=== PATIENT | female | born 1965 | race Caucasian/White ===

== ENCOUNTER → 2016-07-21 | Outpatient (CLI) | payer MEDICAID ==
[~2016-07-21] MED LIST: CALC500T11 PO; CHOL100062 PO; ZOC10 PO
--- NOTE | 2016-07-21 14:17 | RADRPT ---
PROCEDURE: XR Chest. CLINICAL INDICATION: Cough. TECHNIQUE: Two views. Frontal and lateral. COMPARISON: 02/10/2016. FINDINGS: There is a left internal jugular vein implanted port central venous catheter with the tip in the cav oatrial junction region. The lungs are clear. The heart size is normal. There is no pleural effusion. There is no pneumothorax. IMPRESSION: 1. Left IJ catheter in satisfactory position. 2. Clear lungs. RPTAT: QQ .Victoriano Sagastume MD, MD Date Time Electronically viewed and signed by .Victoriano Sagastume MD, MD on 07/21/2016 14:16 .R/
== END | disposition home or self-care (01) ==
LOC: RAD 13:37
PROVIDERS: ATTEND Internal Medicine Hematology & Oncology
DX: R05 Cough (principal)
CPT/HCPCS: 71020

== ENCOUNTER 2016-10-10 03:15 | Emergency (ER) | payer MEDICAID ==
[~2016-10-10] VITALS: Ht 157.5 cm; Wt 64.5 kg
[2016-10-10 03:21] VITALS: Ht 157.5 cm; Wt 64.5 kg
--- NOTE | 2016-10-10 03:41 | ERA ---
ER Documentation Chief Complaint Date/Time DATE: 10/10/16 TIME: 03:40 Chief Complaint dizziness,SUAREZ,nausea,denies CP/SOB HPI The patient is a 50-year-old female, presenting to the ER because of dizziness, headache, nausea for 1 day. The symptoms worse with head movement. She denies similar symptoms previously, denies fever, chills, neck pain, chest pain, dyspnea, abdominal pain, vomiting, dysuria, diarrhea. She does not smoke or drink Past medical history: Hypertension, dyslipidemia, history of right breast cancer treated with chemotherapy for 6 months and finished about 3 weeks ago Past surgical history: Hysterectomy, ROS All systems reviewed and are negative except as per history of present illness. Medications Home Meds Active Scripts Carbamide Peroxide* (Debrox*) 6.5% - 15 Ml Drops, 10 DROP BOTH EARS BID for 7 Days, BOTTLE Prov:SKY MARINO MD 10/10/16 Meclizine Hcl* (Antivert*) 12.5 Mg Tab, 25 MG PO Q6H Y for DIZZINESS, #20 TAB Prov:SKY MARINO MD 10/10/16 Reported Medications Acetaminophen* (Tylenol*) 500 Mg Tab, 500 MG PO Q4H Y for MILD PAIN LEVEL 1-3, TAB 10/10/16 Calcium Carbonate (Oysco-500) 500 Mg Tablet, 500 MG PO DAILY, TAB 03/29/16 Discontinued Reported Medications Cholecalciferol* (Vitamin D3*) 1,000 Unit Tablet, 1000 UNIT PO DAILY, TAB 03/29/16 Simvastatin (Simvastatin) 10 Mg Tablet, 10 MG PO DAILY, #30 TAB 02/09/16 Allergies Allergies: Coded Allergies: No Known Allergy (Unverified , 10/10/16) PMhx/Soc History of Surgery: Yes (RT BREAST,HYSTERECTOMY,CSECTION) Anesthesia Reaction: No Hx Neurological Disorder: No Hx Respiratory Disorders: No Hx Cardiac Disorders: Yes (HTN,HYPERLIPIDEMIA) Hx Psychiatric Problems: No Hx Miscellaneous Medical Probl: Yes (RT BREAST CA) Hx Alcohol Use: No Hx Substance Use: No Hx Tobacco Use: No Physical Exam Vitals Vital Signs Date Time Temp Pulse Resp B/P Pulse Ox O2 Delivery O2 Flow Rate FiO2 10/10/16 05:02 73 12 147/100 97 Room Air 10/10/16 03:21 98.2 82 18 142/64 99 Physical Exam Const: No acute distress. Head: Atraumatic. Eyes: Normal Conjunctiva. ENT: Normal External Ears, Nose and Mouth. Bilateral ear canals with moderate amount of cerumens Neck: Full range of motion. No meningismus. Resp: Clear to auscultation bilaterally. Cardio: Regular rate and rhythm, no murmurs. Abd: Soft, non distended, normal bowel sounds, non tender. Skin: No petechiae or rashes. Back: No midline or flank tenderness. Ext: No cyanosis, or edema. Neur: Awake and alert. No focal deficit Psych: Normal Mood and Affect. Result Diagram: 10/10/16 04010/10/16404 Results 24 hrs Laboratory Tests Test 10/10/16 04:05 White Blood Count 4.710^3/ul Red Blood Count 3.6410^6/ul Hemoglobin 10.9g/dl Hematocrit 35.1% Mean Corpuscular Volume 96.4fl Mean Corpuscular Hemoglobin 29.9pg Mean Corpuscular Hemoglobin Concent 31.1g/dl Red Cell Distribution Width 13.7% Platelet Count 48621^3/UL Mean Platelet Volume 10.2fl Neutrophils % 58.0% Lymphocytes % 28.2% Monocytes % 10.0% Eosinophils % 3.4% Basophils % 0.4% Nucleated Red Blood Cells % 0.0/100WBC Neutrophils # 2.710^3/ul Lymphocytes # 1.310^3/ul Monocytes # 0.510^3/ul Eosinophils # 0.210^3/ul Basophils # 0.010^3/ul Nucleated Red Blood Cells # 0.010^3/ul Sodium Level 144mmol/L Potassium Level 4.0mmol/L Chloride Level 111mmol/L Carbon Dioxide Level 27mmol/L Anion Gap 10 Blood Urea Nitrogen 14mg/dl Creatinine 0.60mg/dl Glucose Level 106mg/dl Bedside Glucose 114mg/dL Calcium Level 9.5mg/dl Current Medications Medications (Trade) Dose Ordered Sig/Andres Route PRN Reason Start Time Stop Time Status Last Admin Dose Admin Meclizine HCl (Antivert) 25 mg ONCE ONCE PO 10/10/16 04:00 10/10/16 04:01 DC 10/10/16 04:08 Procedures/[place] [address] Radiology Main Line: [phone] DIAGNOSTIC IMAGING REPORT Patient: LISET LIVE : 1965 Age: 50 Sex: F MR #: [id number] #: [id number] DOS: 10/10/16 0348 Ordering MD: SKY MARINO MD Location: E/R Room/Bed: PROCEDURE: CT BRAIN WITHOUT CONTRAST CLINICAL INDICATION: 50-year-old female with syncope. TECHNIQUE: The study was performed utilizing a [employer] VCT 64-slice CT scanner. Direct axial sections were obtained from the foramen magnum to the vertex without the use of intravenous contrast material. Sagittal and coronal reformations were obtained. One or more the following dose reduction techniques were utilized: automated exposure control, adjustment of the mA and/or kV according to patient's size or use of iterative reconstruction technique. The images were viewed on a PACS workstation. CTD/vol = 45.0 mGy; Total Exam DLP = 720.2 mGy-cm. COMPARISON: None. FINDINGS: The ventricles have a normal size, shape and position. There is no evidence for mass effect or midline shift. There are no intracranial areas of abnormal attenuation. There is no evidence for acute intra or extra-axial blood. The bony calvarium is intact. The visualized paranasal sinuses and mastoid air cells are without significant abnormal soft tissue. IMPRESSION: Unremarkable noncontrast CT scan of the brain. .Vic Gilbert MD, MD Date Time Electronically viewed and signed by .Vic Gilbert MD, on 10/10/2016 04:27 .M/ CC: SKY MARINO MD EKG: Read by emergency physician Rate/Rhythm: Normal Sinus Rhythm 78 beats/min QRS, ST, T-waves: No ST elevation, no T inversion Impression: Normal EKG MEDICAL MAKING DECISION: The patient is a 50-year-old female, presenting with acute dizziness of unclear etiology, acute bilateral ear canal cerumen impaction. She was treated with Antivert for dizziness with good response The differential diagnoses considered include but are not limited to central causes such as cerebellar infarct, cerebellar hemorrhage, cerebellar tumor, acoustic neuroma, peripheral causes such as benign positional vertigo, labyrinthitis, medication, Meniere's disease. Departure Diagnosis: Primary Impression: Dizziness Additional Impressions: Impacted cerumen of both ears Anemia Condition: Good Comments She was discharged with Antivert and Debrox I discussed the findings with the patient. I advised the patient to follow-up with the primary physician in about 1-2 days, sooner if needed and return if any concern. SKY MARINO MD October 10, 2016 03:41
[2016-10-10] MEDS ORDERED: MECLIZINE 12.5 MG TAB PO ONE (04:00)
[2016-10-10 04:22] LABS: ADD SCAN DIFF NO
--- NOTE | 2016-10-10 04:27 | RADRPT ---
PROCEDURE: CT BRAIN WITHOUT CONTRAST CLINICAL INDICATION: 50-year-old female with syncope. TECHNIQUE: The study was performed utilizing a GE 3i Systemspeed VCT 64-slice CT scanner. Direct axia l sections were obtained from the foramen magnum to the vertex without the use of intravenous contra st material. Sagittal and coronal reformations were obtained. One or more the following dose reduct ion techniques were utilized: automated exposure control, adjustment of the mA and/or kV according t o patient's size or use of iterative reconstruction technique. The images were viewed on a PACS [employer]. CTD/vol = 45.0 mGy; Total Exam DLP = 720.2 mGy-cm. COMPARISON: None. FINDINGS: The ventricles have a normal size, shape and position. There is no evidence for mass effect or midl ine shift. There are no intracranial areas of abnormal attenuation. There is no evidence for acute intra or extra-axial blood. The bony calvarium is intact. The visualized paranasal sinuses and mast oid air cells are without significant abnormal soft tissue. IMPRESSION: Unremarkable noncontrast CT scan of the brain. .Vic Gilbert MD, MD Date Time Electronically viewed and signed by .Vic Gilbert MD, on 10/10/2016 04:27 .Jesus/
[2016-10-10 04:31] LABS: BASOPHILS % 0.4 % (0.0-2.0); EOSINOPHILS # 0.2 10^3/ul (0.0-0.5); EOSINOPHILS % 3.4 % (0.0-7.0); HEMATOCRIT 35.1 % (37.0-47.0); HEMOGLOBIN 10.9 g/dl (12.0-16.0); LYMPHOCYTES # 1.3 10^3/ul (0.8-2.9); LYMPHOCYTES % 28.2 % (15.0-51.0); MEAN CORPUSCULAR HEMOGLOBIN 29.9 pg (29.0-33.0); MEAN CORPUSCULAR HGB CONC 31.1 g/dl (32.0-37.0); MEAN CORPUSCULAR VOLUME 96.4 fl (82.0-101.0); MEAN PLATELET VOLUME 10.2 fl (7.4-10.4); MONOCYTE # 0.5 10^3/ul (0.3-0.9); NEUTROPHIL # 2.7 10^3/ul (1.6-7.5); PLATELET COUNT 201 10^3/UL (140-415); RED BLOOD COUNT 3.64 10^6/ul (4.20-5.40); RED CELL DISTRIBUTION WIDTH 13.7 % (11.5-14.5); WHITE BLOOD COUNT 4.7 10^3/ul (4.8-10.8)
[2016-10-10] MEDS ORDERED: TYL500 PO (04:50)
[2016-10-10 04:54] LABS: CREATININE 0.6 mg/dl (0.44-1.00)
[2016-10-10 04:55] LABS: CALCIUM 9.5 mg/dl (8.4-10.2)
[2016-10-10 05:02] VITALS: BP 147/100; PULSE 73; RESP 12
[2016-10-10] MEDS ORDERED: MECL12.574 PO (05:14)
[2016-10-10] MEDS ORDERED: CARB15DR48 BOTH EARS (05:15)
== END 2016-10-10 05:28 | disposition home or self-care (01) ==
LOC: E/R 03:15
DX: R42 Dizziness and giddiness (principal); H61.23 Impacted cerumen, bilateral; D64.9 Anemia, unspecified; R40.2142 Coma scale, eyes open, spontaneous, at arrival to emergency department; R40.2252 Coma scale, best verbal response, oriented, at arrival to emergency department; R40.2362 Coma scale, best motor response, obeys commands, at arrival to emergency department; I10 Essential (primary) hypertension; Z85.3 Personal history of malignant neoplasm of breast
CPT/HCPCS: 36415; 70450; 80048; 82962; 85025; 93005; Z7502; Z7610

== ENCOUNTER 2016-11-16 09:11 | Day surgery (SDC) | payer MEDICAID ==
[~2016-11-16] VITALS: Ht 152.4 cm; Wt 64.0 kg
[2016-11-16] VITALS (11 sets, daily range): BP systolic 124–148; BP diastolic 59–82; PULSE 66–104; RESP 12–18; Ht 152.4 cm; Wt 64.0 kg
[~2016-11-16 09:11] MED LIST changes: +CARB15DR50 BOTH EARS; +CEFAZOLIN 1 GM INJ ONE; -CHOL100062 PO; +GLYCOPYRROLATE 0.4 MG INJ ONE; +MECL12.574 PO; +NEOSTIGMINE 3 MG/3 ML SYRINGE ONE; +ROCURONIUM 50 MG INJ ONE; +SUCCINYLCHOLINE CHLORIDE 100 MG/5 ML SYG IV ONE; +TYL500 PO; -ZOC10 PO
[2016-11-16 12:06] LABS: ADD SCAN DIFF NO
[2016-11-16 12:12] LABS: BASOPHILS % 0.3 % (0.0-2.0); EOSINOPHILS # 0.1 10^3/ul (0.0-0.5); EOSINOPHILS % 0.8 % (0.0-7.0); HEMATOCRIT 38.2 % (37.0-47.0); HEMOGLOBIN 12.7 g/dl (12.0-16.0); LYMPHOCYTES # 1.2 10^3/ul (0.8-2.9); LYMPHOCYTES % 18.5 % (15.0-51.0); MEAN CORPUSCULAR HEMOGLOBIN 30.4 pg (29.0-33.0); MEAN CORPUSCULAR HGB CONC 33.2 g/dl (32.0-37.0); MEAN CORPUSCULAR VOLUME 91.4 fl (82.0-101.0); MEAN PLATELET VOLUME 10.5 fl (7.4-10.4); MONOCYTE # 0.4 10^3/ul (0.3-0.9); MONOCYTES % 5.6 % (0.0-11.0); NEUTROPHILS % 74.6 % (39.0-77.0); PLATELET COUNT 182 10^3/UL (140-415); RED BLOOD COUNT 4.18 10^6/ul (4.20-5.40); RED CELL DISTRIBUTION WIDTH 13.3 % (11.5-14.5); WHITE BLOOD COUNT 6.7 10^3/ul (4.8-10.8)
[2016-11-16 12:26] LABS: INR 0.9; PROTIME 12.1 Sec (12.2-14.2); PT RATIO 0.9
[2016-11-16 12:27] LABS: PARTIAL THROMBOPLASTIN TIME 27.2 Sec (25.0-35.0)
[2016-11-16 12:33] LABS: ALBUMIN 5.2 g/dl (3.3-4.9); ALBUMIN/GLOBULIN RATIO 1.33; BILIRUBIN,INDIRECT 0.5 mg/dl (0-1.1); BILIRUBIN,TOTAL 0.5 mg/dl (0.2-1.3); TOTAL PROTEIN 9.1 g/dl (6.1-8.1)
--- NOTE | 2016-11-16 12:51 | RADRPT ---
PROCEDURE: XR Chest 1 View. CLINICAL INDICATION: Abnormal breath sounds, preop. TECHNIQUE: AP view of the chest was obtained. COMPARISON: July 21, 2016 FINDINGS: The heart size is within normal limits. Calcified atherosclerosis is noted in the aorta. Left chest port has its tip at the expected location of the cavoatrial junction. No consolidations are identif ied. No pneumothorax is seen. Osseous structures are intact. IMPRESSION: Calcified atherosclerosis in the aorta. Clear lungs. RPTAT: AA .Tolu Crabtree MD, Date Time Electronically viewed and signed by .Tolu Crabtree MD, on 11/16/2016 12:50 .P/
[2016-11-16] MEDS ORDERED: ONDANSETRON 4 MG INJ ONE (13:01)
[2016-11-16] MEDS ORDERED: MIDAZOLAM 1 MG/ML 2 ML INJ ONE (13:01)
[2016-11-16] MEDS ORDERED: LIDOCAINE 2% (SDV) 5 ML INJ ONE (13:01)
[2016-11-16] MEDS ORDERED: PROPOFOL 20 ML ONE (13:01)
[2016-11-16 13:02] LABS: CALCIUM 10.7 mg/dl (8.4-10.2); CREATININE 0.61 mg/dl (0.44-1.00); POTASSIUM 4.3 mmol/L (3.5-5.1)
[2016-11-16] MEDS ORDERED: DEXAMETHASONE 4 MG/ML 1 ML INJ ONE (13:02)
[2016-11-16] MEDS ORDERED: FAMOTIDINE 20 MG INJ ONE (13:02)
[2016-11-16] MEDS ORDERED: HYDROCODONE/APAP (5/325) TAB PO ONE (14:30)
[2016-11-16] MEDS ORDERED: METOCLOPRAMIDE 10 MG INJ IV PRN (15:00)
[2016-11-16] MEDS ORDERED: ONDANSETRON 4 MG INJ IV PRN (15:00)
[2016-11-16] MEDS ORDERED: FENTAnyl 50 MCG/ML VIAL IV PRN ×2 (15:00)
[2016-11-16] MEDS ORDERED: MEPERIDINE 25 MG INJ IV PRN (15:00)
[2016-11-16] MEDS ORDERED: HYDROmorphONE (0.2 MG/ML) 10ML SYG IV PRN ×3 (15:00)
[2016-11-16] MEDS ORDERED: DIPHENHYDRAMINE 50 MG INJ IV PRN (15:00)
--- NOTE | 2016-11-17 16:54 | RADRPT ---
Vent Rate: 77 bpm RR Interval: 0 msec OH Interval: 126 msec QRS Duration: 84 msec QT Interval: 414 msec QTC Interval: 468 msec P-R-T Morris: 45 - 56 - 59 degrees Normal sinus rhythm Normal ECG Electronically Signed By: Bartolo Pickens [id number]
--- NOTE | 2016-12-02 11:20 | OPR ---
DATE OF OPERATION: 11/16/2016 SURGEON: Rah Suarez MD. AUTO APPRENTICE MECHANIC: None. ANESTHESIOLOGIST: [____] PREOPERATIVE DIAGNOSIS: Recurrent cancer right breast. PREOPERATIVE DIAGNOSIS: Recurrent cancer right breast. OPERATION PERFORMED: Right needle-directed partial mastectomy. ANESTHESIA: General. INDICATIONS FOR PROCEDURE: The patient is a 51-year-old female who is known to me. I previously treated her for an invasive cancer of her breast. She presented with a possible recurrent nodule near the axilla. Ultrasound guided biopsy confirmed recurrent cancer, possibly within an inframmary lymph node. The patient was as to the need for surgical excision, and she consented and was scheduled for right needle directed partial mastectomy. DESCRIPTION OF PROCEDURE: On the day of surgery, the patient presented to [facility] where she underwent localization of the tumor, performed by attending radiologist, Dr. Carlitos Smith. Subsequently, she was brought to the operating theatre and placed under general anesthesia. The right breast was prepped and draped in the usual sterile fashion. A curvilinear incision was made in the upper outer quadrant of the right breast in the region of the previously placed localization wire. The subcutaneous tissue as dissected with cautery. The skin edges were then elevated with skin hooks and wide circumferential dissection of the tissue associated with the wire, taking great care to ensure adequate margins. The specimen was elevated, transected, oriented and sent for radiographic confirmation of capture of the clip. Capture was confirmed. The specimen was then sent for permanent pathologic analysis. The wound was irrigated, minimal bleeding was controlled with cautery. The skin was then reapproximated with #4-0 Vicryl suture in subcuticular fashion. The patient tolerated the procedure well. The patient was then transported in stable condition to the Recovery room where a circumferential compression dressing was applied. ESTIMATED BLOOD LOSS: Approximately 20 mL. COMPLICATIONS: There were no complications. Dictated By: Rah Suarez MD /andrzej/jeannine /Document#: [id number]
== END 2016-11-16 16:50 | disposition home or self-care (01) ==
LOC: SDS 09:11
PROVIDERS: ATTEND Surgery Surgical Oncology
DX: C50.411 Malignant neoplasm of upper-outer quadrant of right female breast (principal); E78.5 Hyperlipidemia, unspecified; I10 Essential (primary) hypertension
CPT/HCPCS: 19301; 71010; 80053; 85025; 85610; 85730; 88307; 93005; J0690; J2175; J2250; J2405; J2710; J3010; J7999; Z7512; Z7610; J1100

== ENCOUNTER 2017-01-03 18:53 | Inpatient (IN) | payer MEDICAID ==
[~2017-01-03] VITALS: Ht 160 cm; Wt 61.5 kg
[2017-01-03] MEDS ORDERED: SOD CHLORIDE 0.9% 500 ML IV STA (23:22)
[2017-01-03] MEDS ORDERED: MECLIZINE 12.5 MG TAB PO ONE (23:30)
--- NOTE | 2017-01-03 23:55 | ERD ---
ER Documentation Chief Complaint Date/Time DATE: 01/03/17 TIME: 23:54 Chief Complaint n/v, dizziness, headache hx of breast ca HPI Very pleasant 51-year-old Pakistani-speaking female. An seismic interpreter was used. The patient describes onset of nonbloody nonbilious emesis and room spinning vertigo sensation that started earlier today. The symptoms are reproducible. She has had similar symptoms in the past approximately 3-4 months ago with a negative CT brain. She denies any fevers or chills chest pain or shortness of breath. Patient states that she had received chemotherapy and they are about to initiate radiation therapy. She does not believe that the cancer is metastatic though she thinks they did find an extra lymph node. ROS All systems reviewed and are negative except as per history of present illness. Medications Home Meds Reported Medications Cholecalciferol* (Vitamin D*) 400 Unit Tablet, 800 UNIT PO DAILY, TAB 01/04/17 Simvastatin* (Zocor*) 10 Mg Tablet, 10 MG PO QHS, #30 TAB 01/04/17 Allergies Allergies: Coded Allergies: No Known Allergy (Unverified , 01/04/17) PMhx/Soc History of Surgery: Yes (PARTIAL HYSTERECTOMY) Anesthesia Reaction: No Hx Neurological Disorder: No Hx Respiratory Disorders: No Hx Cardiac Disorders: No Hx Psychiatric Problems: No Hx Miscellaneous Medical Probl: No Hx Alcohol Use: No Hx Substance Use: No Hx Tobacco Use: No FmHx Family History: No diabetes Physical Exam Vitals Vital Signs Date Time Temp Pulse Resp B/P Pulse Ox O2 Delivery O2 Flow Rate FiO2 01/03/17 20:07 98.7 71 18 133/96 99 Physical Exam General: Well developed, well nourished, no acute distress Head: Normocephalic, atraumatic. Eyes: Pupils equally reactive, EOM intact ENT: Moist mucous membranes Neck: Supple, no lymphadenopathy Respiratory: Lungs clear bilaterally, no distress Cardiovascular: RRR, no murmurs, rubs, or gallops Abdominal: Soft, non-tender, non-distended, no peritoneal signs : Deferred MSK: No edema, no unilateral swelling, 5/5 strength Neurologic: Alert and oriented, moving all extremities, normal speech, no focal weakness, no cerebellar signs, slight reproducible vertigo with head movements Skin: No rash Psych: Normal mood Result Diagram: 01/03/17 5851 01/03/17 2334 Results 24 hrs Laboratory Tests Test 01/03/17 23:34 White Blood Count 6.310^3/ul Red Blood Count 4.2610^6/ul Hemoglobin 12.8g/dl Hematocrit 38.0% Mean Corpuscular Volume 89.2fl Mean Corpuscular Hemoglobin 30.0pg Mean Corpuscular Hemoglobin Concent 33.7g/dl Red Cell Distribution Width 12.8% Platelet Count 57011^3/UL Mean Platelet Volume 10.9fl Neutrophils % 68.3% Lymphocytes % 24.5% Monocytes % 6.2% Eosinophils % 0.5% Basophils % 0.3% Nucleated Red Blood Cells % 0.0/100WBC Neutrophils # (Manual) 410^3/ul Lymphocytes # 1.510^3/ul Monocytes # 0.410^3/ul Eosinophils # 0.010^3/ul Basophils # 0.010^3/ul Nucleated Red Blood Cells # 0.010^3/ul Sodium Level 144mmol/L Potassium Level 4.5mmol/L Chloride Level 102mmol/L Carbon Dioxide Level 28mmol/L Anion Gap 19 Blood Urea Nitrogen 12mg/dl Creatinine 0.63mg/dl Glucose Level 104mg/dl Calcium Level 10.6mg/dl Current Medications Medications (Trade) Dose Ordered Sig/Andres Route PRN Reason Start Time Stop Time Status Last Admin Dose Admin Sodium Chloride (NS) 500 ml @ 500 mls/hr Q1H STAT IV 01/03/17 23:22 01/04/17 00:21 DC 01/04/17 00:00 Meclizine HCl (Antivert) 25 mg ONCE ONCE PO 01/03/17 23:30 01/03/17 23:31 DC 01/03/17 23:59 Procedures/MDM EKG, MONITORS, & DIAGNOSTIC IMAGING: MRI brain Pending LAB INTERPRETATION: No acute process MEDICAL DECISION MAKING: The patient presents to the emergency room complaining of vertigo. She has slight reproducible symptoms that are suggestive of possible benign positional vertigo. However the patient has breast cancer she is currently undergoing chemotherapy. She notes that there may have been an extra lymph node that had disease. Given the patient's recurrent vertigo I am concerned for possible metastatic spread. While I believe this is less likely I cannot rule this out without MRI imaging. The patient had a CT in September I do not feel the patient has a need for a repeat CT given the risk of radiation. I believe an MRI would be appropriate. ER COURSE: The patient was given meclizine with only mild improvement she was given Ativan. Given her persistence of symptoms and limited follow-up I recommend inpatient observation until MRI can be completed in the morning. I attempted to call for stat MRI but they cannot come in overnight. The patient is resting comfortably she did receive a repeat dose of Ativan. I believe avoiding CT is still appropriate as the patient can have MRI imaging in the morning. I kept the patient and/or family informed of laboratory and diagnostic imaging results throughout the emergency room course. DISPOSITION PLAN: Medical surgical admission to rule out intracranial metastases CONSULTATION: Accepting care team and consultations: I discussed the current laboratory data, diagnostic imaging and emergency care provided. Admitting team: Dr. Morales Admitting team indication: Insurance directed Departure Diagnosis: Primary Impression: Vertigo Additional Impression: History of breast cancer KAROL ADAM MD Jan 03, 2017 23:54
[2017-01-04 00:01] LABS: BASOPHILS % 0.3 % (0.0-2.0); EOSINOPHILS % 0.5 % (0.0-7.0); HEMOGLOBIN 12.8 g/dl (12.0-16.0); LYMPHOCYTES # 1.5 10^3/ul (0.8-2.9); LYMPHOCYTES % 24.5 % (15.0-51.0); MEAN CORPUSCULAR HGB CONC 33.7 g/dl (32.0-37.0); MEAN CORPUSCULAR VOLUME 89.2 fl (82.0-101.0); MEAN PLATELET VOLUME 10.9 fl (7.4-10.4); MONOCYTE # 0.4 10^3/ul (0.3-0.9); MONOCYTES % 6.2 % (0.0-11.0); NEUTROPHILS % 68.3 % (39.0-77.0); PLATELET COUNT 198 10^3/UL (140-415); RED BLOOD COUNT 4.26 10^6/ul (4.20-5.40); RED CELL DISTRIBUTION WIDTH 12.8 % (11.5-14.5); WHITE BLOOD COUNT 6.3 10^3/ul (4.8-10.8)
[2017-01-04 00:21] LABS: CREATININE 0.63 mg/dl (0.44-1.00); POTASSIUM 4.5 mmol/L (3.5-5.1)
[2017-01-04] MEDS ORDERED: SIMV10TA PO (00:30)
[2017-01-04] MEDS ORDERED: CHOL400T10 PO (00:30)
[2017-01-04 01:40] LABS: CALCIUM 10.6 mg/dl (8.4-10.2)
[2017-01-04] MEDS ORDERED: ONDANSETRON 4 MG INJ IV PRN ×2 (02:30→04:30)
[2017-01-04] MEDS ORDERED: LORAZEPAM 2 MG INJ IV ONE (02:30)
[2017-01-04] MEDS ORDERED: ACETAMINOPHEN 325 MG TAB PO PRN (02:30)
--- NOTE | 2017-01-04 04:13 | HP ---
Date/Time of Note Date/Time of Note DATE: 01/04/17 TIME: 04:10 Assessment/Plan VTE Prophylaxis VTE Prophylaxis Intervention: ambulation, SCD's Assessment/Plan Assessment/Plan 51-year-old female with history of recurrent right breast cancer who presents with dizziness and nausea and vomiting 1. Vertigo with nausea and vomiting rule out brain metastasis 2. Recurrent right-sided breast cancer 3. Dyslipidemia Plan: Patient will be admitted to get MRI done and to further workup her dizziness. This will include lab testing, urinalysis, and even ACS rule out. We will give IV fluids and also get physical therapy evaluation. Further interventions will depend on her clinical course. We will provide supportive care. Prophylaxis SCDs/ambulation HPI/ROS Admit Date/Time Admit Date/Time January 04, 2017 Hx of Present Illness This is a 51-year-old female with a history of recurrent right-sided breast cancer for which she is status post partial mastectomy 2 the last of which was November 2016. She presents to emergency room today with a one-day history of vomiting and severe vertigo. Vertigo is so severe that patient is unable to perform her ADLs. There is no fever, there is no blood in vomit or blood in her stool. As well as the patient knows she does not have brain metastasis. Has no cough, no chest pain, no shortness of breath. Patient has not had similar symptoms in the past. ROS 12 point review if systems was done and pertinent findings are as noted. PMH/Family/Social Past Medical History * Recurrent right-sided breast cancer with positive lymphadenopathy but no distant metastasis * Dyslipidemia Past Surgical History * Right partial mastectomy 2 Social History Alcohol Use: none Smoking Status: Unknown if ever smoked Exam/Review of Systems Vital Signs Vitals VS - Last 72 Hours, by Label Date Time Temp Pulse Resp B/P Pulse Ox O2 Delivery O2 Flow Rate FiO2 01/03/17 20:07 98.7 71 18 133/96 99 Vital Signs Date Time Temp Pulse Resp B/P Pulse Ox O2 Delivery O2 Flow Rate FiO2 01/03/17 20:07 98.7 71 18 133/96 99 Exam Exam Constitutional: alert, oriented Head: atraumatic, normocephalic Neck: non-tender, supple Respiratory: clear to auscultation Cardiovascular: regular rate and rhythm Gastrointestinal: S/ NT / ND / +BS Extremities: no edema, good radial pulses Labs Result Diagram: 01/03/17 2334 01/03/17 2334 Medications Medications Current Medications Cholecalciferol (Vitamin D) 800 units DAILY PO ; Start 01/04/17 at 09:00; Status UNV Miscellaneous Information 10 mg QHS PO ; Start 01/04/17 at 21:00; Status UNV Ondansetron HCl (Zofran Inj) 4 mg Q6H PRN IV NAUSEA AND/OR VOMITING; Start at 04:30; Status UNV Acetaminophen/ Hydrocodone Bitart ([place] (5/325)) 1 tab Q6H PRN PO pain; Start 01/04/17 at 04:30; Status UNV Procedures Procedures Laboratory Tests Test 01/03/17 23:34 White Blood Count 6.310^3/ul Red Blood Count 4.2610^6/ul Hemoglobin 12.8g/dl Hematocrit 38.0% Mean Corpuscular Volume 89.2fl Mean Corpuscular Hemoglobin 30.0pg Mean Corpuscular Hemoglobin Concent 33.7g/dl Red Cell Distribution Width 12.8% Platelet Count 70060^3/UL Mean Platelet Volume 10.9fl Neutrophils % 68.3% Lymphocytes % 24.5% Monocytes % 6.2% Eosinophils % 0.5% Basophils % 0.3% Nucleated Red Blood Cells % 0.0/100WBC Neutrophils # (Manual) 410^3/ul Lymphocytes # 1.510^3/ul Monocytes # 0.410^3/ul Eosinophils # 0.010^3/ul Basophils # 0.010^3/ul Nucleated Red Blood Cells # 0.010^3/ul Sodium Level 144mmol/L Potassium Level 4.5mmol/L Chloride Level 102mmol/L Carbon Dioxide Level 28mmol/L Anion Gap 19 Blood Urea Nitrogen 12mg/dl Creatinine 0.63mg/dl Glucose Level 104mg/dl Calcium Level 10.6mg/dl Current Medications Medications (Trade) Dose Ordered Sig/Andres Route PRN Reason Start Time Stop Time Status Last Admin Dose Admin Sodium Chloride (NS) 500 ml @ 500 mls/hr Q1H STAT IV 01/03/17 23:22 01/04/17 00:21 DC 01/04/17 00:00 500 MLS/HR Meclizine HCl (Antivert) 25 mg ONCE ONCE PO 01/03/17 23:30 01/03/17 23:31 DC 01/03/17 23:59 25 MG Lorazepam (Ativan) 0.5 mg ONCE ONCE IV 01/04/17 02:30 01/04/17 02:31 DC Ondansetron HCl (Zofran Inj) 4 mg BRIDGE ORDER PRN IV NAUSEA AND/OR VOMITING 01/04/17 02:30 01/05/17 02:29 Acetaminophen (Tylenol Tab) 650 mg ER BRIDGE PRN PO MILD PAIN/FEVER 01/04/17 02:30 01/05/17 02:29 Cholecalciferol (Vitamin D) 800 units DAILY PO 01/04/17 09:00 UNV Miscellaneous Information 10 mg QHS PO 01/04/17 21:00 UNV Ondansetron HCl (Zofran Inj) 4 mg Q6H PRN IV NAUSEA AND/OR VOMITING 01/04/17 04:30 UNV Acetaminophen/ Hydrocodone Bitart ([place] (5/325)) 1 tab Q6H PRN PO pain 01/04/17 04:30 UNV MILO GUZMAN Jan 04, 2017 04:13
[2017-01-04] MEDS ORDERED: HYDROCODONE/APAP (5/325) TAB PO PRN (04:30)
[2017-01-04] MEDS ORDERED: SOD CHLORIDE 0.9% 1,000 ML IV SCH (04:30)
[2017-01-04 04:42] VITALS: BP 130/70; PULSE 79; RESP 18; Ht 160 cm; Wt 61.5 kg
[2017-01-04 07:39] LABS: BASOPHILS % 0.2 % (0.0-2.0); EOSINOPHILS # 0.1 10^3/ul (0.0-0.5); EOSINOPHILS % 1.3 % (0.0-7.0); HEMATOCRIT 36.7 % (37.0-47.0); HEMOGLOBIN 12.1 g/dl (12.0-16.0); LYMPHOCYTES # 1.7 10^3/ul (0.8-2.9); LYMPHOCYTES % 34.9 % (15.0-51.0); MEAN CORPUSCULAR HEMOGLOBIN 29.7 pg (29.0-33.0); MEAN CORPUSCULAR VOLUME 90.2 fl (82.0-101.0); MEAN PLATELET VOLUME 10.9 fl (7.4-10.4); MONOCYTE # 0.5 10^3/ul (0.3-0.9); MONOCYTES % 9.9 % (0.0-11.0); NEUTROPHILS % 53.5 % (39.0-77.0); PLATELET COUNT 186 10^3/UL (140-415); RED BLOOD COUNT 4.07 10^6/ul (4.20-5.40); RED CELL DISTRIBUTION WIDTH 12.8 % (11.5-14.5); WHITE BLOOD COUNT 4.7 10^3/ul (4.8-10.8)
[2017-01-04 08:28] LABS: ALBUMIN 4.5 g/dl (3.3-4.9); BILIRUBIN,INDIRECT 0.4 mg/dl (0-1.1); BILIRUBIN,TOTAL 0.4 mg/dl (0.2-1.3); CHOL/HDL RATIO 4.2 RATIO; CREATININE 0.61 mg/dl (0.44-1.00); MAGNESIUM 2.1 mg/dl (1.7-2.5); POTASSIUM 3.9 mmol/L (3.5-5.1); TOTAL PROTEIN 8.2 g/dl (6.1-8.1)
[2017-01-04 08:37] LABS: CK-MB 1.27 ng/ml (0.0-2.4); TROPONIN-I 0.017 ng/ml (0.00-0.12)
[2017-01-04] MEDS ORDERED: CHOLECALCIFEROL 400 UNITS TAB PO SCH (09:00)
[2017-01-04] MEDS ORDERED: DOCUSATE SODIUM 100 MG CAP PO SCH (09:00)
[2017-01-04] MEDS ORDERED: FAMOTIDINE 20 MG TAB PO SCH (09:00)
[2017-01-04 12:37] LABS: CREATINE KINASE 118 IU/L (23-200)
[2017-01-04 13:07] LABS: TROPONIN-I < 0.012 ng/ml (0.00-0.12)
[2017-01-04 14:11] LABS: THYROID STIMULATING HORMONE 2.37 MIU/L (0.465-4.680)
--- NOTE | 2017-01-04 17:15 | RADRPT ---
PROCEDURE: MRI Brain without contrast. CLINICAL INDICATION: Vertigo, history breast cancer TECHNIQUE: Multiplanar MRI of the brain without contrast was performed on a 3.0 T scanner with the following sequences obtained: T1-weighted, T2-weighted/FLAIR, diffusion weighted (with ADC map), GR E. COMPARISON: CT brain 10/10/2016 FINDINGS: No acute/recent ischemic infarction or intracranial hemorrhage / blood degradation products are iden tified. No extra-axial fluid collection is seen. There is no mass effect. No midline shift is identified. The ventricles and sulci are within normal limits for size and configuration. The signal intensity is unremarkable throughout the cerebrum, brainstem and cerebellum. Flow voids are identified in the proximal intracranial arteries and dural sinuses suggesting patency . The mastoid air cells and paranasal sinuses are grossly clear. IMPRESSION: 1. No evidence of acute intracranial pathology. 2. Unremarkable noncontrast MRI of the brain. RPTAT: VV .Waldemar Hollins MD, MD Date Time Electronically viewed and signed by .Waldemar Hollins MD, on 01/04/2017 17:15 .O/
--- NOTE | 2017-01-04 17:56 | PDOCDIS ---
Discharge Instructions DIAGNOSIS Discharge Diagnosis dizziness CONDITION Patient Condition: Stable FOLLOW UP/APPOINTMENTS Follow-up Plan Follow up with your regular doctor within 5 days RADHA DING MD Jan 04, 2017 17:56
[2017-01-04 18:00] VITALS: BP 136/72; PULSE 86; RESP 18
--- NOTE | 2017-01-04 18:03 | DS ---
Date/Time of Note Date/Time of Note DATE: 01/04/17 TIME: 18:02 Discharge Summary Admission/Discharge Info Admit Date/Time Jan 04, 2017 at 02:04 Discharge Date/Time Discharge Diagnosis dizziness Patient Condition: Stable Procedures MRI brain 01.04 IMPRESSION: 1. No evidence of acute intracranial pathology. 2. Unremarkable noncontrast MRI of the brain. Hx of Present Illness This is a 51-year-old female with a history of recurrent right-sided breast cancer for which she is status post partial mastectomy 2 the last of which was November 2016. She presents to emergency room today with a one-day history of vomiting and severe vertigo. Vertigo is so severe that patient is unable to perform her ADLs. There is no fever, there is no blood in vomit or blood in her stool. As well as the patient knows she does not have brain metastasis. Has no cough, no chest pain, no shortness of breath. Patient has not had similar symptoms in the past. Hospital Course Pt admitted for dizziness. Labs unremarkable as was neuroimaging. Pt's symptoms resolved shortly after admission. Pt able to ambulate unassisted in the halls. Pt requesting discharge. Pt advised to follow up with PCP within 5 days. Home Meds Reported Medications Cholecalciferol* (Vitamin D*) 400 Unit Tablet, 800 UNIT PO DAILY, TAB 01/04/17 Simvastatin* (Zocor*) 10 Mg Tablet, 10 MG PO QHS, #30 TAB 01/04/17 Primary Care Provider [facility] Pending Labs Laboratory Tests Test 01/03/17 23:34 01/04/17 06:10 01/04/17 12:05 White Blood Count 6.310^3/ul (4.8-10.8) 4.710^3/ul (4.8-10.8) Red Blood Count 4.2610^6/ul (4.20-5.40) 4.0710^6/ul (4.20-5.40) Hemoglobin 12.8g/dl (12.0-16.0) 12.1g/dl (12.0-16.0) Hematocrit 38.0% (37.0-47.0) 36.7% (37.0-47.0) Mean Corpuscular Volume 89.2fl (82.0-101.0) 90.2fl (82.0-101.0) Mean Corpuscular Hemoglobin 30.0pg (29.0-33.0) 29.7pg (29.0-33.0) Mean Corpuscular Hemoglobin Concent 33.7g/dl (32.0-37.0) 33.0g/dl (32.0-37.0) Red Cell Distribution Width 12.8% (11.5-14.5) 12.8% (11.5-14.5) Platelet Count 62691^3/UL (140-415) 87014^3/UL (140-415) Mean Platelet Volume 10.9fl (7.4-10.4) 10.9fl (7.4-10.4) Neutrophils % 68.3% (39.0-77.0) 53.5% (39.0-77.0) Lymphocytes % 24.5% (15.0-51.0) 34.9% (15.0-51.0) Monocytes % 6.2% (0.0-11.0) 9.9% (0.0-11.0) Eosinophils % 0.5% (0.0-7.0) 1.3% (0.0-7.0) Basophils % 0.3% (0.0-2.0) 0.2% (0.0-2.0) Nucleated Red Blood Cells % 0.0/100WBC (0.0-0.0) 0.0/100WBC (0.0-0.0) Neutrophils # (Manual) 410^3/ul (1.7-7.5) 310^3/ul (1.7-7.5) Lymphocytes # 1.510^3/ul (0.8-2.9) 1.710^3/ul (0.8-2.9) Monocytes # 0.410^3/ul (0.3-0.9) 0.510^3/ul (0.3-0.9) Eosinophils # 0.010^3/ul (0.0-0.5) 0.110^3/ul (0.0-0.5) Basophils # 0.010^3/ul (0.0-0.1) 0.010^3/ul (0.0-0.1) Nucleated Red Blood Cells # 0.010^3/ul (0.0-0.0) 0.010^3/ul (0.0-0.0) Sodium Level 144mmol/L (135-144) 142mmol/L (135-144) Potassium Level 4.5mmol/L (3.5-5.1) 3.9mmol/L (3.5-5.1) Chloride Level 102mmol/L (97-110) 104mmol/L (97-110) Carbon Dioxide Level 28mmol/L (21-31) 26mmol/L (21-31) Anion Gap 19 (8-16) 16 (8-16) Blood Urea Nitrogen 12mg/dl (7-20) 11mg/dl (7-20) Creatinine 0.63mg/dl (0.44-1.00) 0.61mg/dl (0.44-1.00) Glucose Level 104mg/dl (70-220) 88mg/dl (70-220) Calcium Level 10.6mg/dl (8.4-10.2) 10.0mg/dl (8.4-10.2) Magnesium Level 2.1mg/dl (1.7-2.5) Total Bilirubin 0.4mg/dl (0.2-1.3) Direct Bilirubin 0.00mg/dl (0.00-0.20) Indirect Bilirubin 0.4mg/dl (0-1.1) Aspartate Amino Transf (AST/SGOT) 39IU/L (15-46) Alanine Aminotransferase (ALT/SGPT) 40IU/L (13-69) Alkaline Phosphatase 101IU/L (42-121) Creatine Kinase 135IU/L (23-200) 118IU/L (23-200) Creatine Kinase Index 0.9 0.5 Creatinine Kinase MB (Mass) 1.27ng/ml (0.0-2.4) 0.60ng/ml (0.0-2.4) Troponin I 0.017ng/ml (0.00-0.12) < 0.012ng/ml (0.00-0.12) Total Protein 8.2g/dl (6.1-8.1) Albumin 4.5g/dl (3.3-4.9) Triglycerides Level 143mg/dl (0-149) Cholesterol Level 171mg/dl (100-200) LDL Cholesterol, Calculated 102mg/dl HDL Cholesterol 40mg/dl (37-92) Cholesterol/HDL Ratio 4.2RATIO Thyroid Stimulating Hormone (TSH) 2.370MIU/L (0.465-4.680) RADHA DING MD Jan 04, 2017 18:03
[2017-01-04] MEDS ORDERED: ATORVASTATIN 10 MG TAB PO SCH (21:00)
== END 2017-01-04 18:30 | disposition home or self-care (01) | DRG 149 ==
LOC: E/R 18:53 → MS3 01-04 02:04
PROVIDERS: ADMIT Family Medicine; ATTEND Family Medicine
DX: R42 Dizziness and giddiness (principal); E78.5 Hyperlipidemia, unspecified; Z85.3 Personal history of malignant neoplasm of breast
CPT/HCPCS: 36415; 70551; 80048; 80061; 80076; 82550; 82553; 83735; 84443; 84484; 85025; 93005; J7030; J7040

== ENCOUNTER 2018-01-11 14:59 | Emergency (ER) | END 2018-01-11 21:30 | disposition home or self-care (01) ==

== ENCOUNTER 2018-09-13 14:32 | Emergency (ER) | payer MEDICAID ==
[~2018-09-13] VITALS: Ht 152.4 cm; Wt 72.0 kg
[~2018-09-13 14:32] MED LIST changes: -CALC500T11 PO; -CARB15DR50 BOTH EARS; -CEFAZOLIN 1 GM INJ ONE; +CHOL400T10 PO; -GLYCOPYRROLATE 0.4 MG INJ ONE; -NEOSTIGMINE 3 MG/3 ML SYRINGE ONE; +ONDA4TAB14 PO; -ROCURONIUM 50 MG INJ ONE; +SIMV10TA PO; -SUCCINYLCHOLINE CHLORIDE 100 MG/5 ML SYG IV ONE; -TYL500 PO
[2018-09-13 14:37] VITALS: BP 125/77; PULSE 65; RESP 16; Ht 152.4 cm; Wt 72.0 kg
[2018-09-13] MEDS ORDERED: ONDANSETRON (ODT) 4 MG TAB ODT STA (17:37)
--- NOTE | 2018-09-13 17:40 | ERD ---
ER Documentation Chief Complaint Chief Complaint pt is bib family c/o dizziness, hx vertigo, nausea since this am HPI 52-year-old female, with a history of vertigo and breast cancer in remission, presents to the emergency department, complaining of sudden onset of a spinning sensation since this morning, associated with nausea. The patient states that the symptoms are the same as before, she denies headaches, no distal weakness, numbness or tingling. ROS All systems reviewed and are negative except as per history of present illness. Medications Home Meds Active Scripts Lorazepam* (Ativan*) 0.5 Mg Tablet, 0.5 MG PO Q8H PRN for dizziness, #10 TAB Prov:AYLIN SESAY MD 09/13/18 Ondansetron Hcl* (Zofran*) 4 Mg Tablet, 4 MG PO Q8H PRN for NAUSEA AND/OR VOMITING, #15 TAB Prov:AYLIN SESAY MD 09/13/18 Meclizine Hcl* (Meclizine Hcl*) 25 Mg Tablet, 25 MG PO Q8H PRN for DIZZINESS, #20 TAB Prov:AYLIN SESAY MD 09/13/18 Ondansetron (Ondansetron Odt) 4 Mg Tab.rapdis, 4 MG PO Q6H PRN for NAUSEA AND/OR VOMITING, #10 TAB Prov:BAKARI VALENZUELA MD 01/11/18 Meclizine Hcl* (Antivert*) 12.5 Mg Tab, 25 MG PO Q6H PRN for DIZZINESS, #20 TAB Prov:BAKARI VALENZUELA MD 01/11/18 Reported Medications Cholecalciferol* (Vitamin D*) 400 Unit Tablet, 800 UNIT PO DAILY, TAB 01/04/17 Simvastatin* (Zocor*) 10 Mg Tablet, 10 MG PO QHS, #30 TAB 01/04/17 Allergies Allergies: Coded Allergies: No Known Allergy (Unverified , 01/04/17) PMhx/Soc History of Surgery: Yes (right breast mastectomy, PORT PLACEMENT, X 2, HYSTERECTOMY) Anesthesia Reaction: No Hx Neurological Disorder: No Hx Respiratory Disorders: No Hx Cardiac Disorders: No Hx Psychiatric Problems: No Hx Miscellaneous Medical Probl: Yes (HLD, breast CA) Hx Alcohol Use: Yes (OCASSIONALLY) Hx Substance Use: No Hx Tobacco Use: No FmHx Family History: diabetes; No coronary disease Physical Exam Vitals Vital Signs Date Temp Pulse Resp B/P (MAP) Pulse Ox O2 O2 Flow FiO2 Time Delivery Rate 09/13/18 98.1 65 16 125/77 98 14:37 (93) Physical Exam Patient is in no acute distress, vital signs stable. Alert and fully oriented. HEENT: PERRLA, EOMI, Sclera and conjunctiva appear normal, Canals clear, tympanic membranes WNL. THROAT: Normal oropharynx. NECK: Supple, No lymphadenopathy. Full ROM without pain or tenderness. HEART: RRR, no rubs, murmurs, clicks or gallops. LUNGS: Clear to auscultation. ABDOMEN: Soft, non-tender without masses or hepatosplenomegaly. EXTREMITIES: No edema bilaterally. BACK: Full ROM, no deformity, normal back exam NEURO: Cranial nerves grossly intact, no motor or sensory deficit. Mild horizontal nystagmus while the patient was looking straight ahead with mildly abnormal head impulse test. Results 24 hrs Current Medications Medications Dose Sig/Andres Start Time Status Last (Trade) Ordered Route PRN Stop Time Admin Dose Reason Admin Ondansetron 4 mg ONCE STAT 09/13/18 DC 09/13/18 HCl (Zofran ODT 17:37 09/13/18 17:45 Odt) 17:40 Lorazepam 0.5 mg ONCE ONCE 09/13/18 09/13/18 (Ativan) PO 18:00 09/13/18 17:45 18:01 Meclizine 12.5 mg ONCE ONCE 09/13/18 09/13/18 HCl PO 18:00 09/13/18 17:45 (Antivert) 18:01 Procedures/MDM Vital signs stable, neurovascular exam revealed horizontal nystagmus while the patient was looking straight ahead with mildly abnormal head impulse test. Differential diagnosis include but not limited to dehydration, cardiac arrhythmi a, , Mnire's disease, vestibular neuronitis, migraine, vertigo, side effects of the medications, hypoglycemia. Less likely but is still a possibility, intracranial hemorrhage, ischemic stroke, CORRECTION LIEUTENANT neoplasm. Physical examination and clinical presentation consistent most likely with positional vertigo During the ED course the patient remained stable, no new complaints. Results and clinical impression discussed with patient who agrees with management. The patient is stable to be treated outpatient and will be discharged home with instructions to follow up with the primary care provider in the next 48h. If symptoms persist, worsen or new symptoms develop, then patient should return to the ED immediately. Instructions explained and given directly by me to the patient with acknowledgment and demonstrated understanding. Disclaimer: Inadvertent spelling and grammatical errors are likely due to EHR/dictation software use and do not reflect on the overall quality of patient care. Also, please note that the electronic time recorded on this note does not necessarily reflect the actual time of the patient encounter. Departure Diagnosis: Primary Impression: Positional vertigo Condition: Stable Additional Instructions: Muchas calderon por [facility] para brizuela servicio. Esperamos que en brizuela visita a la dennis de emergencia brizuela problema medico haya sido solucionado y que se sienta mucho mejor. Para estar seguros que brizuela mejoria sigue en proceso, le pedimos el favor de hacer tanisha rigoberto de seguimiento medico con brizuela doctor primario en los proximos 2-4 palacios. Lleve con usted estos documentos y las medicinas recetadas. Si lana sintomas empeoran, NO SE ESPERE, por favor regrese a dennis de emergencia INMEDIATAMENTE. En alesia que usted no tenga un mdico de atencin primaria: Llame al mdico o clnica comunitaria de referencia que aparece abajo french las horas de consultorio para hacer tanisha rigoberto para que le vean. CLINICAS: [facility] [phone] [facility] [phone] [facility] [phone] [address] [employer] [phone] [facility] [phone] [address] [facility]. [phone] [address],AYLIN MD September 13, 2018 17:40
[2018-09-13] MEDS ORDERED: ONDA4TAB8 PO (17:56)
[2018-09-13] MEDS ORDERED: MECL-77 PO (17:56)
[2018-09-13] MEDS ORDERED: LORA-441 PO (17:56)
[2018-09-13] MEDS ORDERED: MECLIZINE 12.5 MG TAB PO ONE (18:00)
[2018-09-13] MEDS ORDERED: LORAZEPAM 0.5 MG TAB PO ONE (18:00)
== END 2018-09-13 18:08 | disposition home or self-care (01) ==
LOC: FTE 14:32
DX: H81.10 Benign paroxysmal vertigo, unspecified ear (principal); Z85.3 Personal history of malignant neoplasm of breast
CPT/HCPCS: Z7610 ×3; 99283